=== PATIENT | female | born 1995 | race Caucasian/White ===

== ENCOUNTER 2017-03-07 15:54 | Emergency (ER) | payer SELFPAY ==
[~2017-03-07] VITALS: Ht 162.6 cm; Wt 86.2 kg
[2017-03-07 16:37] VITALS: BP 116/73
--- NOTE | 2017-03-07 17:35 | NUR ---
TO BED 3 AT THIS TIME.
--- NOTE | 2017-03-07 17:49 | NUR ---
21 F [facility] C/O 6/10 "SHARP" LLQ AND L SIDED SUPRAPUBIC THAT RADIATES TO LEFT LOWER BACK X1 DAY; PT DENIES ANY URINARY COMPLAINTS; PT DENIES ANY RECENT FALLS OR INJURY; DENIES N/V/D; SKIN IS PINK/WARM/DRY; AAOX4 WITH EVEN AND STEADY GAIT; RR ARE EVEN AND UNLABORED; PATIENT STATES PAIN OF 0/10 AT THIS TIME; VSS; PATIENT POSITIONED FOR COMFORT; HOB ELEVATED; BEDRAILS UP X2; BED DOWN. ER MD MADE AWARE OF PT STATUS.
[2017-03-07] MEDS ORDERED: KETOROLAC 60 MG/2 ML VIAL IM ONE (18:20)
[2017-03-07] MEDS ORDERED: IBUPROFEN 800 MG TAB PO ONE (19:00)
--- NOTE | 2017-03-07 19:16 | NUR ---
Pt found sitting in bed. No distress noted. All needs addressed.
[2017-03-07 19:20] VITALS: BP 126/78
--- NOTE | 2017-03-07 19:20 | NUR ---
Patient discharged with v/s stable. Written and verbal after care instructions given and explained. Patient alert, oriented and verbalized understanding of instructions. Ambulatory with steady gait. All questions addressed prior to discharge. ID band removed. Patient advised to follow up with PMD. Rx of Tramadol 50mg given. Patient educated on indication of medication including possible reaction and side effects. Opportunity to ask questions provided and answered.
== END 2017-03-07 19:20 | disposition home or self-care (01) ==
LOC: MED 15:54
DX: R10.2 Pelvic and perineal pain (principal)
CPT/HCPCS: 76856; 81002; 81025; 96372; 99284; J1885